=== PATIENT | female | born 1990 | race Two or more races ===

== ENCOUNTER → 2024-12-12 | Emergency (ER) | payer MEDICAID, OTHER ==
[~2024-12-12] VITALS: Ht 157.5 cm; Wt 86.2 kg
[2024-12-12 21:55] VITALS: BP 144/81; TEMP 98.2; O2SAT 100
== END ==
LOC: ER 21:55
DX: F15.90 Other stimulant use, unspecified, uncomplicated (principal); Z53.21 Procedure and treatment not carried out due to patient leaving prior to being seen by health care provider